=== PATIENT | female | born 1980 | race Two or more races ===

== ENCOUNTER 2025-05-25 08:45 | Inpatient (IN) | payer OTHER ==
[~2025-05-25] VITALS: Ht 172.7 cm; Wt 73.0 kg
[2025-05-25 08:53] LABS: BASO % 1.3 % (0.1-1.2); EOS # 0.22 (0.04-0.54); EOS % 4.1 % (0.7-7.0); LYMPH # 1.79 (1.18-3.74); LYMPH % 33.7 % (19.3-53.1); MEAN PLATELET VOLUME 9.60 fl (9.4-12.4); MONO # 0.41 (0.24-0.82); MONO % 7.7 % (4.7-12.5); NEUT # 2.81 (1.56-6.13); NEUT % 53.0 % (34.0-71.1); RED CELL DISTRIBUTION WIDTH 18.3 % (11.6-14.4)
[2025-05-25 09:06] VITALS: BP 120/80
[2025-05-25 09:08] VITALS: BP 118/80
[2025-05-25 09:44] LABS: INR 0.96
[2025-05-25 09:47] LABS: URINE APPEARANCE Cloudy; URINE BILIRRUBIN Negative (NEGATIVE); URINE BLOOD Large; URINE COLOR Red; URINE GLUCOSE Negative (NEGATIVE); URINE KETONE Negative (NEGATIVE); URINE LEUKOCYTE Trace; URINE NITRATE Negative; URINE PROTEIN 30 (NEGATIVE); URINE UROBILINOGEN 0.2 E.U./dl
[2025-05-25 09:48] LABS: URINE BACTERIA 361.1 uL (0.0-1933); URINE EPITHELIAL CELLS 3.5 uL (0.0-38.8); URINE WBC 26.6 uL (0.0-23.2)
[2025-05-25 09:58] LABS: URINE CAST 0.45 uL (0.0-1.40); URINE RBC > 10558.9 uL (0.0-20.8)
[2025-05-25 10:35] LABS: ALT/SGPT 24.0 U/L (12-78); AST/SGOT 12.0 U/L (15-37); BILIRUBIN TOTAL 0.28 mg/dL (0.3-1.2); BUN CREA RATIO 15.0 (7.0-25.0); CREATININE SERUM 0.68 mg/dL (0.55-1.02); GFR 94.89; GLOBULINA 3.4 G/DL (2.4-3.5); GLUCOSE FASTING 97.0 mg/dL (65-100); OSMOLALITY SERUM 282.0 MOSM/KG (275-295)
[2025-05-31] MEDS ORDERED: CEFOXITIN SODIUM 2,000 MG VIAL IV ONE ×2 (07:48→10:15)
[2025-05-31] MEDS ORDERED: POVIDONE-IODINE 118 ML BOTT TOP ONE ×2 (08:50→10:15)
[2025-05-31] MEDS ORDERED: SURGIFLO APPLICATOR 1 EACH APPL TOP ONE (10:45)
[2025-05-31] MEDS ORDERED: HEMOSTATIC MATRIX 1 KIT KIT TOP ONE (10:45)
[2025-05-31] MEDS ORDERED: MORPHINE SULFATE 4 MG/ML VIAL IV ONE (11:45)
[2025-05-31] MEDS ORDERED: PROMETHAZINE HCL 25 MG/ML AMPUL IV SCH (12:28)
[2025-05-31] MEDS ORDERED: MORPHINE SULFATE 4 MG,MORPHINE SULFATE 2 MG IV SCH (12:33)
[2025-05-31 16:27] VITALS: BP 120/80
[2025-05-31 20:30] LABS: BASO % 0.2 % (0.1-1.2); EOS # 0.02 (0.04-0.54); EOS % 0.2 % (0.7-7.0); LYMPH # 1.76 (1.18-3.74); LYMPH % 13.6 % (19.3-53.1); MEAN PLATELET VOLUME 9.60 fl (9.4-12.4); MONO # 0.75 (0.24-0.82); MONO % 5.8 % (4.7-12.5); NEUT # 10.35 (1.56-6.13); NEUT % 79.9 % (34.0-71.1); RED CELL DISTRIBUTION WIDTH 18.8 % (11.6-14.4)
[2025-05-31 20:38] VITALS: BP 114/78
[2025-05-31] MEDS ORDERED: SIMETHICONE 125 MG CAPSULE PO SCH (21:00)
[2025-05-31] MEDS ORDERED: GABAPENTIN 300 MG CAPSULE PO SCH (21:00)
[2025-06-01 01:26] VITALS: BP 112/75
[2025-06-01] MEDS ORDERED: SIMETHICONE125 M1 PO (07:10)
[2025-06-01] MEDS ORDERED: GABAPENTIN300 MG PO (07:10)
[2025-06-01] MEDS ORDERED: IBUPROFEN800 MG PO (07:10)
[2025-06-01 09:57] VITALS: BP 109/73
== END 2025-06-01 09:10 | disposition home or self-care (01) | DRG 743 ==
LOC: O/R 05-31 05:08 → OB/GYN 05-31 08:45
PROVIDERS: ADMIT Obstetrics & Gynecology; ATTEND Obstetrics & Gynecology
PROC: 0UT9FZZ Resection of Uterus, Via Natural or Artificial Opening With Percutaneous Endoscopic Assistance (ICD-10-PCS; principal; 2025-05-31 12:30)
DX: D25.1 Intramural leiomyoma of uterus (principal); N72 Inflammatory disease of cervix uteri; R10.2 Pelvic and perineal pain; N93.9 Abnormal uterine and vaginal bleeding, unspecified

== ENCOUNTER 2025-06-11 15:16 | Emergency (ER) | payer OTHER ==
[~2025-06-11] VITALS: Ht 172.7 cm; Wt 72.6 kg
[~2025-06-11 15:16] MED LIST: GABAPENTIN300 MG PO; IBUPROFEN800 MG PO; SIMETHICONE125 M1 PO
[2025-06-11] MEDS ORDERED: 0.9 % SODIUM CHLORIDE 1,000 ML IV ONE (16:45)
[2025-06-11 17:02] LABS: BASO % 0.3 % (0.1-1.2); EOS # 0.34 (0.04-0.54); EOS % 2.2 % (0.7-7.0); LYMPH # 2.76 (1.18-3.74); LYMPH % 17.6 % (19.3-53.1); MEAN PLATELET VOLUME 9.20 fl (9.4-12.4); MONO # 1.27 (0.24-0.82); MONO % 8.1 % (4.7-12.5); NEUT # 11.18 (1.56-6.13); NEUT % 71.5 % (34.0-71.1); RED CELL DISTRIBUTION WIDTH 17.2 % (11.6-14.4)
[2025-06-11 17:23] LABS: INR 0.99
[2025-06-11 17:33] LABS: ALT/SGPT 44.0 U/L (12-78); AST/SGOT 19.0 U/L (15-37); BILIRUBIN TOTAL 0.3 mg/dL (0.3-1.2); BUN CREA RATIO 12.0 (7.0-25.0); CREATININE SERUM 0.84 mg/dL (0.55-1.02); GFR 74.35; GLOBULINA 4.3 G/DL (2.4-3.5); GLUCOSE FASTING 137.0 mg/dL (65-100); OSMOLALITY SERUM 279.0 MOSM/KG (275-295)
[2025-06-11 17:37] LABS: URINE APPEARANCE Clear; URINE BILIRRUBIN Negative (NEGATIVE); URINE BLOOD Moderate; URINE COLOR Yellow; URINE GLUCOSE Negative (NEGATIVE); URINE KETONE Negative (NEGATIVE); URINE LEUKOCYTE Trace; URINE NITRATE Negative; URINE PROTEIN Negative (NEGATIVE); URINE UROBILINOGEN 0.2 E.U./dl
[2025-06-11 17:39] LABS: URINE BACTERIA 183.5 uL (0.0-1933); URINE EPITHELIAL CELLS 13.5 uL (0.0-38.8); URINE RBC 20.8 uL (0.0-20.8); URINE WBC 15.2 uL (0.0-23.2)
[2025-06-11 17:45] LABS: URINE CAST 0.00 uL (0.0-1.40)
[2025-06-11] MEDS ORDERED: 0.9 % SODIUM CHLORIDE 1,000 ML IV SCH (20:00)
[2025-06-11] MEDS ORDERED: CEFOXITIN SODIUM 2,000 MG VIAL IV SCH (21:00)
[2025-06-12 05:37] LABS: BASO % 0.6 % (0.1-1.2); EOS # 0.28 (0.04-0.54); EOS % 2.6 % (0.7-7.0); LYMPH # 1.99 (1.18-3.74); LYMPH % 18.2 % (19.3-53.1); MEAN PLATELET VOLUME 9.20 fl (9.4-12.4); MONO # 0.77 (0.24-0.82); MONO % 7.1 % (4.7-12.5); NEUT # 7.77 (1.56-6.13); NEUT % 71.1 % (34.0-71.1); RED CELL DISTRIBUTION WIDTH 17.3 % (11.6-14.4)
[2025-06-12] MEDS ORDERED: KETOROLAC TROMETHAMINE 30 MG VIAL IV ONE (10:15)
== END 2025-06-12 10:20 | disposition home or self-care (01) ==
LOC: ER 15:16
PROVIDERS: General Practice
DX: R10.2 Pelvic and perineal pain (principal); R00.0 Tachycardia, unspecified; F41.8 Other specified anxiety disorders